=== PATIENT | male | born 1945 | race American Indian/Alaskan Native ===

== ENCOUNTER 2019-09-03 22:42 | Observation (INO) | payer OTHER, MEDICARE ==
[2019-09-03] MEDS ORDERED: NITROGLYCERIN 0.4 MG TAB SUBL SL ONE (23:02)
[2019-09-03] MEDS ORDERED: FAMOTIDINE 20 MG/2 ML INJ IV ONE (23:02)
[2019-09-03] MEDS ORDERED: SUCRALFATE 1 GM/10 ML ORAL LIQD PO ONE (23:02)
[2019-09-03] MEDS ORDERED: hydrALAZINE 20 MG/1 ML INJ IV ONE (23:02)
--- NOTE | 2019-09-03 23:03 | Emergency Department Report ---
<SHERRY SANFORD - Last Filed: 09/04/19 00:27> ED Chest Pain HPI - General Chief Complaint: Chest Pain Stated Complaint: CP/SOB Time Seen by Provider: 09/03/19 22:54 Source: patient, EMS ( EMS documentation not available at time of chart dictation ), RN notes reviewed Mode of arrival: Stretcher Limitations: No Limitations - History of Present Illness Initial Comments: this Is a 74-year-old gentleman. This patient is not known to myself previously. He has a history of hypertension and diabetes as well as obesity. No recent cardiac risk ratification that he is aware of. His primary care doctor is Dr. Walton He presents to the ER with EMS with a complaint of chest pain and shortness of breath. The chest pain is intermittent over the past week. It is intermittently left-sided and right-sided. It does not radiate anywhere. Shortness of breath is exertional. He takes aspirin on a regular basis. He denies DVT and pulmonary embolism risk factors. There is no complaint of back pain, abdominal pain, extremity pain. He did not take his medications today that he is aware of. No fever, cough, or coronavirus exposure. At the moment he is not having pain. Denies erectile dysfunction medication use, and also denies coke, cocaine, methamphetamine use. MD Complaint: chest pain, other -: Gradual, days(s) Onset: during rest, during exertion Pain Location: substernal, left chest, right chest Pain Radiation: none Severity: mild Quality: tightness, aching, heaviness Consistency: intermittent Improves With: rest Worsens With: exertion Treatments Prior to Arrival: aspirin, nitroglycerin Aspirin use within the Past 7 Days: (1) Yes - Related Data Allergies Allergy/AdvReac Type Severity Reaction Status Date / Time No Known Allergies Allergy Verified 09/04/19 00:57 Heart Score - HEART Score History: Moderately suspicious EKG: Non-specific Age: > 65 Risk factors: > 3 risk factors or hx of atherosclerotic disease Troponin: < normal limit HEART Score: 6 - Critical Actions Critical Actions: 4-6 pts:12-16.6% risk of adverse cardiac event. Should be admitted ED Review of Systems Constitutional: denies: fever, weakness Eyes: denies: eye discharge ENT: denies: congestion Respiratory: shortness of breath. denies: wheezing Cardiovascular: chest pain Gastrointestinal: denies: abdominal pain, constipation, hematemesis, melena, hematochezia Genitourinary: as per HPI Musculoskeletal: as per HPI. denies: back pain Skin: as per HPI Neurological: denies: weakness Psychiatric: as per HPI Hematological/Lymphatic: as per HPI. denies: easy bleeding ED Physical Exam - General Limitations: No Limitations General appearance: alert, anxious, obese - Head Head exam: Present: atraumatic, normocephalic - Eye Eye exam: Present: normal appearance, EOMI. Absent: nystagmus - ENT ENT exam: Present: normal exam, normal orophraynx, mucous membranes moist, normal external ear exam - Neck Neck exam: Present: normal inspection, full ROM. Absent: tenderness, meningismus - Respiratory Respiratory exam: Present: normal lung sounds bilaterally. Absent: respiratory distress - Cardiovascular Cardiovascular Exam: Present: regular rate, normal rhythm, normal heart sounds. Absent: bradycardia, tachycardia, irregular rhythm, systolic murmur, diastolic murmur, rubs, gallop - GI/Abdominal GI/Abdominal exam: Present: soft, normal bowel sounds. Absent: distended, t enderness, guarding, rebound, rigid, pulsatile mass - Rectal Rectal exam: Present: deferred - Extremities Exam Extremities exam: Present: normal inspection, full ROM, other (2+ pulses noted in the bilateral upper and lower extremities. There is no palpable cord. negative Homans sign. Muscular compartments are soft. The pelvis is stable.). Absent: pedal edema, calf tenderness - Back Exam Back exam: Present: normal inspection - Neurological Exam Neurological exam: Present: alert, oriented X3, other (No facial droop. Tongue midline. Extraocular movements intact bilaterally. Facial sensation intact to light touch in V1, V2, V3 distribution bilaterally. 5 and a 5 strength in 4 extremities. Sensation intact to light touch in 4 extremities.). Absent: motor sensory deficit - Psychiatric Psychiatric exam: Present: anxious - Skin Skin exam: Present: warm, dry, intact, normal color. Absent: rash ED Course - Reevaluation(s) Reevaluation #1: 09/03/19 23:58 Differential diagnosis, including but not limited to: Stable angina, unstable angina, acute coronary syndrome, pneumonia, pulmonary embolism, hypertensive urgency, hypertensive cardiomyopathy Assessment and plan: 74-year-old gentleman with obesity, diabetes and hypertension, with concerning chest pain, who is now chest pain-free, initially hypertensive, had equal pulses in the upper and lower extremities, treated appropriately, vital signs are improved, and clinically feels improved. He is not in any acute distress and is not diaphoretic at this time. Moderate to high risk for major adverse cardiac event as per heart score, reports no pulmonary embolism or DVT risk factors, and is low risk by Wells criteria. Plan is to check basic laboratory studies, serial EKG, serial troponin, d-dimer, treat symptoms, obtain x-ray of the chest, and admit to the medical service for cardiac risk ratification once his initial ER work-up is complete. Discussed this plan of care with the patient, who verbalized understanding, and who is amenable to this plan of care. Reevaluation #2: 09/04/19 00:27 Blood pressure improved. Troponin negative. D-dimer negative. Chest x-ray unremarkable. Resting comfortably and in no acute distress. Hospital physician, Dr. Orantes, to accept patient to the medical service CHANDRIKA score - Chandrika Score Age > 65: (1) Yes Aspirin use within the Past 7 Days: (1) Yes 3 or more CAD Risk Factors: (1) Yes 2 or more Angina events in past 24 hrs: (1) Yes Known CAD with more than 50% Stenosis: (0) No Elevated Cardiac Markers: (0) No ST Deviation Greater than 0.5mm: (0) No CHANDRIKA Score: 4 ED Medical Decision Making - Lab Data Result diagrams: 09/03/19 23:10 09/03/19 23:10 Vital Signs 09/03/19 09/03/19 09/03/19 22:56 23:00 23:08 Temperature 98.9 F Pulse Rate 82 82 80 Respiratory 14 18 Rate Blood Pressure 201/104 Blood Pressure 201/104 [Left] O2 Sat by Pulse 100 100 Oximetry 09/03/19 09/03/19 09/03/19 23:09 23:15 23:20 Temperature 98.9 F Pulse Rate 80 77 75 Respiratory 18 14 Rate Blood Pressure 201/104 201/104 201/104 Blood Pressure [Left] O2 Sat by Pulse 100 100 Oximetry 09/03/19 09/03/19 23:30 23:45 Temperature Pulse Rate 83 74 Respiratory 13 14 Rate Blood Pressure 137/80 131/69 Blood Pressure [Left] O2 Sat by Pulse 100 100 Oximetry Lab Results 09/03/19 09/03/19 09/03/19 Range/Units 23:10 23:10 23:10 WBC 7.0 (4.5-11.0) K/mm3 RBC 4.80 (3.65-5.03) M/mm3 Hgb 13.5 (11.8-15.2) gm/dl Hct 39.0 (35.5-45.6) % MCV 81 L (84-94) fl MCH 28 (28-32) pg MCHC 35 H (32-34) % RDW 14.0 (13.2-15.2) % Plt Count 205 (140-440) K/mm3 Lymph % (Auto) 18.4 (13.4-35.0) % [place] % (Auto) 7.2 (0.0-7.3) % Eos % (Auto) 4.4 H (0.0-4.3) % Baso % (Auto) 0.6 (0.0-1.8) % Lymph # 1.3 (1.2-5.4) K/mm3 [place] # 0.5 (0.0-0.8) K/mm3 Eos # 0.3 (0.0-0.4) K/mm3 Baso # 0.0 (0.0-0.1) K/mm3 Seg Neutrophils % 69.4 (40.0-70.0) % Seg Neutrophils # 4.8 (1.8-7.7) K/mm3 PT 13.8 (12.2-14.9) Sec. INR 1.05 (0.87-1.13) Troponin T < 0.010 (0.00-0.029) ng/mL - EKG Data -: EKG Interpreted by Me EKG shows normal: sinus rhythm Rate: normal - EKG Data When compared to previous EKG there are: previous EKG unavailable 09/03/19 23:57 No prior EKG available for comparison. Sinus rhythm, 79 bpm, left axis deviation, borderline left anterior fascicular block, atrial enlargement, poor R wave progression, lateral T wave inversions, the EKG is abnormal, there is no prior for comparison, the EKG is not a STEMI. - Radiology Data Radiology results: pending, image reviewed interpreted by me: 2 view x-ray of the chest negative for acute disease ED Disposition Clinical Impression: Acute chest pain, Hypertensive urgency, Abnormal EKG, Hyperglycemia Disposition: DC/TX-70 ANOTHER TYPE HLTHCARE Condition: Stable <RADHA MEDELLIN - Last Filed: 09/04/19 21:19> ED Review of Systems ROS: Stated complaint: CP/SOB Other details as noted in HPI ED Course Vital Signs 09/03/19 09/03/19 09/03/19 22:56 23:00 23:08 Temperature 98.9 F Pulse Rate 82 82 80 Respiratory 14 18 Rate Blood Pressure 201/104 Blood Pressure 201/104 [Left] O2 Sat by Pulse 100 100 Oximetry 09/03/19 09/03/19 09/03/19 23:09 23:15 23:20 Temperature 98.9 F Pulse Rate 80 77 75 Respiratory 18 14 Rate Blood Pressure 201/104 201/104 201/104 Blood Pressure [Left] O2 Sat by Pulse 100 100 Oximetry 09/03/19 09/03/19 09/03/19 23:30 23:45 23:49 Temperature Pulse Rate 83 74 73 Respiratory 13 14 15 Rate Blood Pressure 137/80 131/69 131/69 Blood Pressure [Left] O2 Sat by Pulse 100 100 100 Oximetry 09/04/19 09/04/19 09/04/19 00:00 00:33 00:45 Temperature Pulse Rate 74 76 72 Respiratory 16 14 14 Rate Blood Pressure 145/73 189/94 189/94 Blood Pressure [Left] O2 Sat by Pulse 100 99 100 Oximetry 09/04/19 09/04/19 09/04/19 01:00 01:15 01:31 Temperature Pulse Rate 73 85 76 Respiratory 15 12 12 Rate Blood Pressure 196/92 189/94 189/94 Blood Pressure [Left] O2 Sat by Pulse 99 100 100 Oximetry 09/04/19 09/04/19 09/04/19 01:45 02:00 02:15 Temperature Pulse Rate 74 76 72 Respiratory 11 L 13 13 Rate Blood Pressure 189/94 159/80 159/80 Blood Pressure [Left] O2 Sat by Pulse 100 99 100 Oximetry 09/04/19 09/04/19 09/04/19 02:31 02:45 03:00 Temperature Pulse Rate 70 72 77 Respiratory 15 15 15 Rate Blood Pressure 159/80 159/80 156/88 Blood Pressure [Left] O2 Sat by Pulse 100 100 99 Oximetry 09/04/19 09/04/19 09/04/19 03:15 03:31 03:45 Temperature Pulse Rate 74 82 76 Respiratory 15 17 15 Rate Blood Pressure 156/88 156/88 156/88 Blood Pressure [Left] O2 Sat by Pulse 100 100 100 Oximetry 09/04/19 09/04/19 09/04/19 04:00 04:15 04:31 Temperature 98.6 F Pulse Rate 84 78 Respiratory 17 16 Rate Blood Pressure 165/81 165/81 Blood Pressure [Left] O2 Sat by Pulse 100 100 Oximetry - Consultations Consultation #2: 09/04/19 03:02 Case d/w DR Petty with [facility], she will call back regarding admission/transfer recommendation after discussion with her hospitalist 09/04/19 03:[address] Petty to be admitted by Dr. Rajan (accepting doctor) to [facility]. Hospitalist informed that admission here will be cancelled. ED Medical Decision Making - Lab Data Result diagrams: 09/03/19 23:10 09/03/19 23:10 Critical care attestation.: If time is entered above; I have spent that time in minutes in the direct care of this critically ill patient, excluding procedure time. ED Disposition Is pt being admited?: No Time of Disposition: 03:18 (transfer accepted [facility])
[2019-09-03 23:42] LABS: Basophils % (Auto) 0.6 % (0.0-1.8); Eosinophils # (Auto) 0.3 K/mm3 (0.0-0.4); Eosinophils % (Auto) 4.4 % (0.0-4.3); Hemoglobin 13.5 gm/dl (11.8-15.2); Lymphocytes # (Auto) 1.3 K/mm3 (1.2-5.4); Lymphocytes % (Auto) 18.4 % (13.4-35.0); Mean Corpuscular HGB Conc 35 % (32-34); Mean Corpuscular Volume 81 fl (84-94); Monocytes # (Auto) 0.5 K/mm3 (0.0-0.8); Monocytes % (Auto) 7.2 % (0.0-7.3); Platelet Count 205 K/mm3 (140-440)
[2019-09-03 23:50] LABS: INR 1.05 (0.87-1.13)
[2019-09-03 23:58] LABS: Alanine Aminotransferase 14 units/L (7-56); Albumin 4.2 g/dL (3.9-5); BUN/Creatinine Ratio 14; Blood Urea Nitrogen 14 mg/dL (9-20); Hemolysis Index 1
[2019-09-04] MEDS ORDERED: INSULIN REGULAR, HUMAN 100 UNITS/1 ML IV ONE
--- NOTE | 2019-09-04 00:56 | XRay Report ---
CHEST 2 VIEWS 0024 INDICATION / CLINICAL INFORMATION: Chest Pain COMPARISON: None available. FINDINGS: SUPPORT DEVICES: None. HEART / MEDIASTINUM: No significant abnormality. LUNGS / PLEURA: No significant pulmonary or pleural abnormality. No pneumothorax. ADDITIONAL FINDINGS: No significant additional findings. IMPRESSION: No significant acute abnormality Signer Name: Randolph Chatterjee MD Signed: 09/04/2019 12:51 AM Workstation Name: [id number]
[2019-09-04] MEDS ORDERED: DEXTROSE 50% IN WATER (25GM) 50 ML SYRINGE IV PRN (01:23)
[2019-09-04] MEDS ORDERED: hydrALAZINE 20 MG/1 ML INJ IV PRN (01:23)
--- NOTE | 2019-09-04 01:24 | History and Physical Report ---
History of Present Illness Date of admission: 09/04/19 00:55 History of present illness: 74-year-old male with a history of hypertension, diabetes comes emergency room for evaluation. He complains of chest pain is in the epigastric, right chest that started 2 days ago, described as a tightness, intermittent last for few seconds, intensity 5/10, no radiation. Admits to shortness of breath, no nausea vomiting, diaphoresis or palpitation. Patient will be admitted for chest pain evaluation Review Of Systems: Constitutional: no weight loss, fever, chills Ears, eyes, nose, mouth and throat: no nasal congestion, no nasal discharge, no sinus pressure, blurry vision, diplopia Neck: No neck pain or rigidity. Cardiovascular: No palpitations Respiratory: Nocough Gastrointestinal: No hematochezia Genitourinary : no dysuria, frequency Musculoskeletal: no muscle ache , joint pain Integumentary: no rash, no pruritis Neurological: no parathesias, focal weakness Endocrine: no cold or heat intolerance, no polyuria or polydipsia Hematologic/Lymphatic: no easy bruising, no easy bleeding, no gland swelling Allergic/Immunologic: no urticaria, no angioedema. PAST MEDICAL HISTORY: hypertension, diabetes PAST SURGICAL HISTORY: None SOCIAL HISTORY: Denies alcohol, tobacco, drugs FAMILY HISTORY: Hypertension Medications and Allergies Allergies Allergy/AdvReac Type Severity Reaction Status Date / Time No Known Allergies Allergy Verified 09/04/19 00:57 Active Meds: Active Medications Enoxaparin Sodium (Enoxaparin) 30 mg SUB-Q QDAY MARIA G Exam - Physical Exam Narrative exam: Gen. appearance: Patient lying in bed, no apparent distress HEENT: Normocephalic, atraumatic, pupils equally round and reactive to light, extraocular movement intact, and no sclericterus,. No JVD or thyromegaly or nodule,neck supple, no carotid bruit ,mucous membranes moist, no exudate or erythema Heart: S1, S2, regular rate and rhythm Lungs: Clear bilaterally, breathing comfortable Abdomen: Positive bowel sounds, nontender, nondistended, no organomegaly Extremity: no edema, cyanosis, clubbing Skin: No rash, nodules, warm, dry Neuro: Cranial nerves II to XII intact, speech is fluent, moves extremities, sensory intact - Constitutional Vitals: Temp Pulse Resp BP Pulse Ox 98.9 F 73 15 196/92 99 09/03/19 23:09 09/04/19 01:00 09/04/19 01:00 09/04/19 01:00 09/04/19 01:00 Results - Labs CBC & Chem 7: 09/03/19 23:10 09/03/19 23:10 Labs: Abnormal lab results 09/03/19 09/03/19 09/04/19 Range/Units 23:10 23:10 01:16 MCV 81 L (84-94) fl MCHC 35 H (32-34) % Eos % (Auto) 4.4 H (0.0-4.3) % Sodium 135 L (137-145) mmol/L Chloride 97.3 L (98-107) mmol/L Glucose 347 H (75-100) mg/dL POC Glucose 277 H (70-105) - Imaging and Cardiology EKG: image reviewed Chest x-ray: report reviewed Assessment and Plan Assessment Chest pain Check cardiac enzymes, obtain stress test Diabetes Check fingersticks, start insulin sliding scale Hypertension, uncontrolled Start IV hydralazine, first dose now Continue outpatient medications DVT prophylaxis
[2019-09-04] MEDS ORDERED: hydrALAZINE 20 MG/1 ML INJ ONE (01:31)
[2019-09-04] MEDS ORDERED: ACETAMINOPHEN 325 MG TAB PO PRN (01:51)
[2019-09-04] MEDS ORDERED: MORPHINE 2 MG/1 ML INJ IV PRN (01:51)
[2019-09-04] MEDS ORDERED: ONDANSETRON 4 MG/2 ML INJ IV PRN (01:51)
[2019-09-04 03:47] LABS: Creatine Kinase MB 4.1 ng/mL (0.0-4.0)
[2019-09-04 04:07] VITALS: BP 165/81
[2019-09-04] MEDS ORDERED: INSULIN LISPRO 100 UNIT/ML SUB-Q SCH (06:00)
--- NOTE | 2019-09-04 06:02 | Event Note ---
Notified that this is a [facility] patient and will be transferred to their facility
[2019-09-04] MEDS ORDERED: ENOXAPARIN 40 MG/0.4 ML INJ SUB-Q SCH (10:00)
[2019-09-04] MEDS ORDERED: ENOXAPARIN 30 MG/0.3 ML INJ SUB-Q SCH (10:00)
== END 2019-09-04 03:19 | disposition other institution (70) ==
LOC: ED 22:42 → 4A 09-04 00:55
PROVIDERS: ADMIT Internal Medicine; ATTEND Internal Medicine
DX: R07.89 Other chest pain (principal); I10 Essential (primary) hypertension; E11.9 Type 2 diabetes mellitus without complications; E66.9 Obesity, unspecified; Z79.899 Other long term (current) drug therapy; Z68.30 Body mass index [BMI] 30.0-30.9, adult
CPT/HCPCS: 36415; 71046; 80053; 82550; 82553; 82962; 83690; 83735; 84484; 85025; 85379; 85610; 96374; 96375; 96376; 99284; G0378; J0360; J1815